=== PATIENT | female | born 1985 | race Two or more races ===

== ENCOUNTER 2019-09-23 07:56 | Emergency (ER) | payer BC, SELFPAY ==
[2019-09-23 07:57] VITALS: BP 152/88; PULSE 91; RESP 17; TEMP 37; O2SAT 97; BMI 28.8
--- NOTE | 2019-09-23 08:24 | ED.VISSUMM ---
- ER Visit Summary Date of Service: 09/23/19 Chief Complaint: Back pain History of Present Illness: The patient is a [address] Thomas. She reports that she has low back pain that began 2 days ago. She denies any recent trauma. No fall, MVA, or change in activity. There is a sharp pain that is 9 out of 10 at worst and 6 out of 10 currently. Is worsened by movement or bending. Is relieved by remaining still. She had minimal relief from heat and ibuprofen. There is no radiation to her legs. No numbness or weakness in her legs. No problems with her bowels or bladder. No groin numbness. Patient reports she had a similar episode approximately 10 years ago. She has no red flags. No fever, chills, dysuria or frequency. No abdominal pain. No drug abuse. Physical Examination: Vitals: Stable. Afebrile. General: A&O x 3. NAD. Cardiovascular exam: Regular rate and rhythm, no murmur, rub or gallop. Respiratory exam: Clear to auscultation bilaterally. No wheezes or stridor. Abdominal exam: Soft, nontender, nondistended, normal bowel sounds. No peritoneal signs. Back: Diffuse moderate tenderness to palpation over the lumbar spine and the paraspinous musculature in the lumbar region. No point tenderness. Negative straight leg bilaterally. 5/5 DF, PF, EHL bilaterally. Normal sensation to light touch throughout. Extremity: No clubbing, cyanosis, or edema. Emergency Department Course and Treatment: Patient reports previously she has had relief from steroids for this. She was given a dose of Kenalog and Toradol IM. Treatment Plan: Patient will be discharged with Norflex and naproxen. Instructed to follow-up with her primary care physician in 1 week if not improving. Return to the emergency department for any worsening symptoms. Disposition: To home in improved and stable condition. Impression: 1. Low back pain, acute. This note was generated with [employer] dictation software. It may contain incorrect words, spelling, and punctuation that were not noted in review of the chart prior to signing ED Disposition - Plan for ED Patient: Instructions: BACK PAIN (Acute or Chronic) Prescriptions: cycloBENZAPRine HCl [Flexeril] 10 mg PO TID PRN #20 tablet PRN Reason: Muscle Spasm Naproxen [Naprosyn] 500 mg PO BID #14 tablet Referrals: Zraa Mei, [facility]-C [NON-STAFF] - 1 Week if not improving
[2019-09-23] MEDS: Ketorolac 60 MG/2 ML Vial IM (08:25)
[2019-09-23] MEDS: Triamcinolone Acetonide 40 MG/ML Vial 80 MG IM (08:25)
== END 2019-09-23 08:37 | disposition home or self-care (01) ==
LOC: ED 08:34
PROVIDERS: Emergency Provider Emergency Medicine; Family Provider Nurse Practitioner Family; PCP Nurse Practitioner Family
DX: M54.5 Low back pain (principal); R11.0 Nausea; I10 Essential (primary) hypertension
CPT/HCPCS: 96372; 99282

== ENCOUNTER 2020-12-03 17:00 | Outpatient (RCR) | payer BC, SELFPAY ==
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
--- NOTE | 2020-10-03 17:18 | HP.PTREVAL ---
Zara Mei, ABNER-C, It has been my pleasure to treat SKYE NORRIS over the last 12 visits for Hip Pain. Please see the progress note below for an update on the physical therapy plan of care! Subjective: Patient reports her hip is better but it bothers her most with stairs and rolling over in bed. Has not slept on her couch since we talk about not doing it. Some days are worse than others. When she does a lot of stairs she is miserable. Getting in/out of the car is not great. She feels that the pool is very helpful. Objective/Function: Posture: FH, RS- able to correct but does not maintain. Gait: normal throughout clinic HR/TR: able with UE. SLS: mild hip drop and 30 sec on left and 30 right. Stairs: asc/desc 8 recip with fair control. Sensation: WNL. ROM: WNL in all planes. Strength: Core: fair minus, Hip: 4/5 throughout Knee: 5/5, Ankle: 5/5. Flex: HS: severe, Gastroc: moderate, Piriformis: moderate. Special Test: BIANCA: positive, Scour: positive, Slump: positive, Dural Signs: positive, Pelvic Alignment: left ASIS superior to right- corrected with MET Plan Plan: *f/u with supervising PT next appt. Would recommend continued AT at this time d/t progress made, however, room for greater improvement. Would suggest return to land PT eventually. *Add dynamic x2BDBs task next next. 10/03/2020: Cont with POC. Focus on LE and core strengths/stabilization. HEP: Isometric Abd, Hip abd, hip add, bridge. 09/03: Aquatic- same goals and focus as IE. Goals Goal 1:: Patient will be I with HEP and progression Goal Time Frame: 4-6 Weeks Goal Progress: Progressing Goal 2:: Patient will ambulate >300 feet with a normalized gait pattern Goal Time Frame: 4-6 Weeks Goal Progress: Progressing Goal 3:: Patient will maintain pelvic alignment for 1 week Goal Time Frame: 4-6 Weeks Goal Progress: Progressing Goal 4:: Patient will report no pain when rolling over in bed Goal Time Frame: 4-6 Weeks Goal Progress: Progressing Anticipated Interventions Patient/Client Instruction: Educate patient on: Benefits of Fitness Program Therapeutic Exercise to Include: Strength training, Endurance training, Balance training, Coordination, Body mechanics, Postural training, Flexibilty training, Gait and locomotor training, Dynamic Lumbar Stabilization, Scapular Strength/Stabilization For the Purpose of:: To improve muscle performance and motor function TENS: Yes Cryotherapy (ice pack, ice massage): Yes Thermo therapy (hot pack): Yes Ultrasound (thermal/non thermal): Yes For the Purpose of:: To decrease pain Please do not hesitate to contact me at [phone] by phone or if you have questions or concerns regarding this new plan of care! Sincerely, SIRENA GodinezT
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
--- NOTE | 2020-12-04 09:43 | HP.PTDCSUM_ITS ---
It has been my pleasure to treat SKYE NORRIS referred by EZEQUIEL Cortes, with the diagnosis of Hip Pain for a total of 26 visit(s). Discharge Date: Please see the following information for a summary of their discharge status. Subjective: Pt was able to get on treadmilll and run/walk without pain.Pt is feeling good. Pt is going to continue with [facility] exericses independetly. L hip Pain Intensity (Out of 10): 0 R hip Pain Intensity (Out of 10): 1 % Improvement: 95 Objective/Function: Posture: FH, RS- able to correct but does not maintain. Gait: normal throughout clinic. ROM: WNL in all planes. Strength: Core: fair, Hip: flex/ext: 4+/5, abd: 4-/5, IR/ER: 4/5 throughout Knee: 5/5, Ankle: 5/5. Goal 1:: Patient will be I with HEP and progression Goal Progress: Goal Met Goal 2:: Patient will ambulate >300 feet with a normalized gait pattern Goal Progress: Goal Met Goal 3:: Patient will maintain pelvic alignment for 1 week Goal Progress: Goal Met Goal 4:: Patient will report no pain when rolling over in bed Goal Progress: Goal Met Plan: Pt to be d/c with I HEP, encouraged to contact with questions and concerns. If there are questions or concerns regarding this patient's physical therapy, please feel free to call me at [phone]. Thank you for the referral of this patient. Sincerely, Juju Rice DPT
== END 2020-12-03 19:00 | disposition home or self-care (01) ==
LOC: PT 17:00
PROVIDERS: PCP Nurse Practitioner Family; Referring Provider Nurse Practitioner Family; Visit Provider Nurse Practitioner Family
DX: M25.551 Pain in right hip (principal)
CPT/HCPCS: 97035; 97110; 97113; 97162; 97164